=== PATIENT | female | born 1990 | race Caucasian/White ===

== ENCOUNTER 2020-01-09 12:03 | Inpatient (IN) | payer MEDICAID, OTHER ==
[~2020-01-09] VITALS: Ht 152.4 cm; Wt 63.5 kg
[2020-01-09] MEDS: DEXT 5%/LR + PITOCIN 20UNITS/L 1,000 ML IV SCH ×2 (12:15→14:14)
[2020-01-09 14:45] VITALS: BP 105/55
[2020-01-09 15:11] LABS: BASOPHILS % 0.5 % (0.0-2.0); EOSINOPHILS % 0.4 % (0.0-5.0); HEMATOCRIT. 35.2 % (36.0-48.0); HEMOGLOBIN. 11.9 g/dL (12.0-16.0); LYMPHOCYTES % 23.1 % (20.0-50.0); MEAN CORPUSCULAR HEMOGLOBIN 33.4 pg (28.0-32.0); MEAN CORPUSCULAR VOLUME 98.8 fL (81.0-99.0); MEAN PLATELET VOLUME 9.8 fl (7.4-10.4); MONOCYTES % 6.5 % (2.0-8.0); NEUTROPHILS % 69.5 % (40.0-76.0); PLATELET 177 x1000/uL (130-400); RED BLOOD CELL COUNT 3.57 mill/uL (4.2-5.4); RED CELL DISTRIBUTION WIDTH 14.6 % (11.6-14.6)
[2020-01-09 15:30] VITALS: BP 98/54
[2020-01-09 15:43] LABS: HEPATITIS B SURFACE ANTIGEN NEGATIVE
[2020-01-09 16:25] LABS: INR 0.9; PROTHROMBIN TIME 9.4 sec (9.6-11.0)
[2020-01-09] MEDS ORDERED: DEXT 5%/LR + PITOCIN 20UNITS/L 1,000 ML IV SCH (19:27)
[2020-01-09] MEDS ORDERED: METHYLERGONOVINE MALEATE 0.2 MG/ML IM PRN (19:30)
[2020-01-09 22:00] VITALS: BP 106/56
[2020-01-10 05:55] VITALS: BP 107/58
[2020-01-10] MEDS: IBUPROFEN 600MG TABLET PO PRN ×2 (06:10→16:04)
[2020-01-10 06:42] LABS: BASOPHILS % 0.3 % (0.0-2.0); HEMATOCRIT. 35.9 % (36.0-48.0); HEMOGLOBIN. 12.3 g/dL (12.0-16.0); LYMPHOCYTES % 26.3 % (20.0-50.0); MEAN CORPUSCULAR HEMOGLOBIN 33.6 pg (28.0-32.0); MEAN CORPUSCULAR VOLUME 98.2 fL (81.0-99.0); MONOCYTES % 5.7 % (2.0-8.0); NEUTROPHILS % 66.7 % (40.0-76.0); PLATELET 198 x1000/uL (130-400); RED BLOOD CELL COUNT 3.66 mill/uL (4.2-5.4); RED CELL DISTRIBUTION WIDTH 14.6 % (11.6-14.6)
[2020-01-10 08:30] VITALS: BP 101/52
[2020-01-10 14:00] VITALS: BP 100/50
== END 2020-01-10 16:55 | disposition home or self-care (01) | DRG 541 ==
LOC: OBSVTOIN 12:03 → 8 EST LDRP 12:03 → 8EST 15:01
PROVIDERS: ADMIT Obstetrics & Gynecology; ATTEND Obstetrics & Gynecology
PROC: 10D17ZZ Extraction of Products of Conception, Retained, Via Natural or Artificial Opening (ICD-10-PCS; principal; 2020-01-09)
DX: O72.0 Third-stage hemorrhage (principal)
CPT/HCPCS: 36415; 85025; 86592; 86703; 86762; 86850; 86900; 87340